=== PATIENT | male | born 1965 | race Caucasian/White ===

== ENCOUNTER 2023-10-25 07:09 | Day surgery (SDC) | payer OTHER ==
[~2023-10-25] VITALS: Ht 172.7 cm; Wt 94.1 kg
[~2023-10-25 07:09] MED LIST: IBLOOD GLUCOSE TEST STRIP 1 EA TEST VI PRN; LACTATED RINGER'S 1,000 ML IV SCH; LIDOCAINE HCL 1% 5 ML SDV INJ ONE; MIDAZOLAM HCL 5 MG/5 ML VIAL IV PRN; fentaNYL citrate 100 MCG/2 ML VIAL IV PRN
[2023-10-25 07:28] VITALS: BP 122/67
--- NOTE | 2023-10-25 07:38 | NUR ---
VISITED DURING SPIRITUAL CARE ROUNDS. PT RECEIVING NURSING CARE. DID NOT INTERRUPT. PROVIDED PRAYER.
[2023-10-25] MEDS ORDERED: fentaNYL citrate 100 MCG/2 ML VIAL ONE (08:44)
[2023-10-25] MEDS ORDERED: MIDAZOLAM HCL 5 MG/5 ML VIAL ONE (08:44)
--- NOTE | 2023-10-25 09:40 | NUR ---
10/25/23 0940 Ken Carmona 0929: PT ARRIVED TO PACU VIA STRECTER. PT DROWSY. PT ON 1L NC. PT ANSWERING QUESTIONS WITHOPUT DIFFICULTY. PT DENIES PAIN OR NAUSEA.
[2023-10-25 09:59] VITALS: BP 118/71
--- NOTE | 2023-10-26 09:31 | OR ---
[facility] [address] [place] [address], [place] [address] Signed DATE OF OPERATION: 10/25/2023 SURGEON: Sushma Houston MD PREOPERATIVE DIAGNOSIS: Cologuard positive stool. POSTOPERATIVE DIAGNOSES: 1. Minimal sigmoid diverticulosis. 2. 4 mm polyp at 10 cm in rectum. 3. 12 mm pedunculated polyp at 25 cm in sigmoid colon (snare, clip). 4. 5 mm polyp at mid transverse colon. 5. 5 mm polyp at ileocecal valve. 6. 7 mm polyp at hepatic flexure (snare, clip). PROCEDURE: Colonoscopy with hot biopsy, snare polypectomy and clip x2. ESTIMATED BLOOD LOSS: Minimal. INDICATIONS: Edmund is a 58-year-old gentleman, asked to see me for his initial colonoscopy. He had a positive Cologuard test through his primary care provider. He has no lower GI complaints. There is no family history of colon cancer or polyps. He does not have any lower GI complaints. In the office, I gave Teodoro pamphlet on colonoscopy. We had reviewed the nature of the test. There is risk including, but not limited to gas bloating, crampy abdominal pain, bleeding, perforation requiring surgery, and missed diagnosis. We also reviewed the written instructions for the bowel prep line by line. We also reviewed the need for IV conscious sedation. He is aware an adult person has to take him home afterwards. He had expressed understanding and wished to proceed. PROCEDURE IN DETAIL: Edmund was taken into our endoscopy suite and placed in the left lateral decubitus position. He was given a total of 8 mg of Versed and 200 mcg of fentanyl. Even then he was frequently clenching his jaw, often awake and pressing with his abdomen. His heart rate dropped into the 80s. In the end, we did get the camera around and all the polyps removed. Nevertheless, he might consider propofol infusion in the future. A digital rectal exam was performed and he does have good sphincter tone. No external hemorrhoids. No masses. His prostate is indurated and enlarged, more prominent on the Electronically Signed By: SUSHMA HOUSTON MD 10/26/23 0931 PATIENT NAME: EDMUND HAYES OPERATIVE REPORT DATE OF : 67 REPORT #: [id number] PHYSICIAN: SUSHMA HOUSTON MD PCP: BALJINDER ROEM REPORT IS CONFIDENTIAL AND NOT TO BE RELEASED WITHOUT AUTHORIZATION [facility] [address] [place] [address], [place] [address] Signed left than on the right. The adult colonoscope had been introduced and advanced around under direct visualization. His prep was good. We could easily see the appendiceal orifice and the ileocecal valve. The scope was then slowly withdrawn. We used hot biopsy forceps on most of the polyps. We did need our snare at 25 cm and at the hepatic flexure. Both of those polypectomy sites received a clip. This patient does use meloxicam for his chronic back pain. We saw just a few tiny diverticula in the sigmoid colon. They were quite clinically insignificant. Once down in the rectum, the scope was retroflexed and we saw no additional pathology above the anal canal. After this, the gas was suctioned out and the colonoscope removed. Edmund tolerated the procedure quite well. RECOMMENDATIONS: I will see Edmund back in my office in 7 to 14 days to review his results. He might consider propofol infusion in the future if he has recall of the procedure. He could always consider colonoscopy based on the number and size of polyps that he has had removed. Sushma Houston MD [facility]/MODL /[id number] cc: ANSON Barillas MD Copies: BALJINDER ROME ANDREW L MD ~ Electronically Signed By: SUSHMA HOUSTON MD 10/26/23 0931 PATIENT NAME: EDMUND HAYES OPERATIVE REPORT DATE OF : 67 REPORT #: [id number] PHYSICIAN: SUSHMA HOUSTON MD PCP: BALJINDER ROME REPORT IS CONFIDENTIAL AND NOT TO BE RELEASED WITHOUT AUTHORIZATION
--- NOTE | 2023-10-27 22:46 | PATH ---
[facility] [address] [facility] [place], [place] [address] Signed SPECIMEN(S): A RECTAL POLYP, 10 CM SPECIMEN(S): B SIGMOID POLYP, 25 CM SPECIMEN(S): C MID TRANSVERSE POLYP SPECIMEN(S): D ILEOCECAL VALVE POLYP SPECIMEN SOURCE: A. RECTAL POLYP, 10 CM B. SIGMOID POLYP, 25 CM C. MID TRANSVERSE POLYP D. ILEOCECAL VALVE POLYP CLINICAL HISTORY: History of positive Cologuard. Post-op: Polyp x5, minimal sigmoid diverticulosis. FINAL PATHOLOGIC DIAGNOSIS: A. Rectum, 10 cm, polyp, biopsy: - Hyperplastic polyp. B. Colon, sigmoid, 25 cm, polyp, biopsy: - Multiple fragments of tubulovillous adenoma. C. Colon, mid transverse, polyp, biopsy: - Tubular adenoma. D. Ileocecal valve, polyp, biopsy: - Multiple fragments of tubular adenoma. COMMENT: There is no evidence of dysplasia or malignancy. [facility] MICROSCOPIC EXAMINATION: Histologic sections of all submitted blocks are examined by light microscopy. These findings, together with the gross examination, support the pathologic diagnosis. GROSS DESCRIPTION: A. The specimen, labeled and designated "Miller, rectal polyp, 10 cm," is received in formalin and consists of one navas soft tissue fragment, 0.2 cm. Entirely submitted in (A1). B. The specimen, labeled and designated "Miller, sigmoid polyp, 25 cm," is received in formalin and consists of five fragments of navas soft tissue (0.4 to 0.6 cm in greatest dimension), and a PATIENT NAME: EDMUND HAYES PATHOLOGY DATE OF : 67 REPORT #: [id number] PHYSICIAN: PATRICIA WILDER PCP: BALJINDER ROME REPORT IS CONFIDENTIAL AND NOT TO BE RELEASED WITHOUT AUTHORIZATION [facility] [address] [place], [place] [address] Signed red-brown to navas pedunculated polypoid piece of tissue (head: 1.3 x 1.3 x 1.0 cm, stalk: 0.5 x 0.4 cm). The resection margin of the polypoid piece of tissue is inked blue, and the tissue is trisected to reveal red-brown to pink-navas soft cut surfaces. The specimen is submitted entirely in cassette (B1). C. The specimen, labeled and designated "Miller, mid transverse polyp," is received in formalin and consists of one navas soft tissue fragment, 0.2 cm. Entirely submitted in (C1). D. The specimen, labeled and designated "Miller, ileocecal valve polyp," is received in formalin and consists of two navas soft tissue fragments, ranging from 0.2 to 0.3 cm. Entirely submitted in (D1). VB (under the direct supervision of a pathologist) The Gross Description was prepared using a voice recognition system. The report was reviewed for accuracy; however, sound-alike word errors, addition and/or deletions may occur. If there is any question about this report, please contact Client Services. ADDITIONAL NOTES: Immunohistochemical and/or in situ hybridization studies if performed in this case included appropriate positive controls that reacted as expected. This test was developed and its performance characteristics determined by [facility]. It has not been cleared or approved by the U.S. Food and Drug Administration. The FDA has determined that such clearance or approval is not necessary. This test is used for clinical purposes. It should not be regarded as investigational or for research. [facility] is certified under the Clinical Laboratory Improvement Amendments of 1988 (CLIA) as qualified to perform high complexity clinical laboratory testing. PERFORMING LABORATORY: Technical component was performed by [facility], [address] [place], [place] [address]vijay [facility] [place] [address] (CLIA# [id number]). Professional interpretation [email or web address], [address] [place] [address] (CLIA#:[id number]). Diagnostician: Jefferson Ybarra MD Pathologist Electronically Signed 10/27/2023 PATIENT NAME: EDMUND HAYES PATHOLOGY DATE OF : 67 REPORT #: [id number] PHYSICIAN: PATRICIA PATHOLOGY PCP: BALJINDER ROME REPORT IS CONFIDENTIAL AND NOT TO BE RELEASED WITHOUT AUTHORIZATION [facility] [address] [place], [place] [address] Signed Copies: ~ PATIENT NAME: EDMUND HAYES PATHOLOGY DATE OF : 67 REPORT #: [id number] PHYSICIAN: PATRICIA WILDER PCP: BALJINDER ROME REPORT IS CONFIDENTIAL AND NOT TO BE RELEASED WITHOUT AUTHORIZATION
== END 2023-10-25 10:13 | disposition home or self-care (01) ==
LOC: DS 07:09
PROVIDERS: ATTEND Colon & Rectal Surgery
PROC: 0DBL8ZZ Excision of Transverse Colon, Via Natural or Artificial Opening Endoscopic (ICD-10-PCS; 2023-10-25)
PROC: 0DBN8ZZ Excision of Sigmoid Colon, Via Natural or Artificial Opening Endoscopic (ICD-10-PCS; 2023-10-25)
PROC: 0DBP8ZZ Excision of Rectum, Via Natural or Artificial Opening Endoscopic (ICD-10-PCS; 2023-10-25)
PROC: 0DBC8ZZ Excision of Ileocecal Valve, Via Natural or Artificial Opening Endoscopic (ICD-10-PCS; principal; 2023-10-25 08:15)
DX: Z12.11 Encounter for screening for malignant neoplasm of colon (principal); D12.3 Benign neoplasm of transverse colon; D12.6 Benign neoplasm of colon, unspecified; K62.1 Rectal polyp; K57.30 Diverticulosis of large intestine without perforation or abscess without bleeding
CPT/HCPCS: 99153; G0500; J2250; J3010; J7121

== ENCOUNTER 2024-04-04 05:55 | Day surgery (SDC) | payer OTHER ==
[2024-03-29 16:22] VITALS: BP 128/76
[~2024-04-04] VITALS: Ht 172.7 cm; Wt 95.0 kg
[~2024-04-04 05:55] MED LIST changes: -IBLOOD GLUCOSE TEST STRIP 1 EA TEST VI PRN; -LIDOCAINE HCL 1% 5 ML SDV INJ ONE; -MIDAZOLAM HCL 5 MG/5 ML VIAL IV PRN; +PHENTERMINE H37.5 M1 PO; +PHENTERMINE HCL15 MG PO; -fentaNYL citrate 100 MCG/2 ML VIAL IV PRN
[2024-04-04 06:12] VITALS: BP 135/74
[2024-04-04 06:44] LABS: BASOPHILS 0.4 % (0-2); BASOPHILS, ABSOLUTE 0 %; EOSINOPHILS 1.8 % (0-6); EOSINOPHILS, ABSOLUTE 0.1; HEMATOCRIT 38.4 % (35.0-50.0); HEMOGLOBIN 13.2 g/dL (12.0-18.0); LYMPHOCYTES 25.2 % (24-44); MCH 31.7 (27-36); MCHC 34.3 g/dl (30-36); MCV 92.5 fl (81-99); MONOCYTES 9.3 % (0-12); MONOCYTES, ABSOLUTE 0.4; NEUTROPHILS 63.3 % (39-80); NEUTROPHILS, ABSOLUTE 2.5; PLATELET COUNT 254 K/uL (140-440); RBC 4.15 M/ul (4.3-5.7); RDW 12.7 (10.5-15.0)
[2024-04-04 07:00] LABS: ALBUMIN 3.5 g/dL (3.4-5.0); ALBUMIN/GLOBULIN RATIO 1.25 (1.1-2.4); ANION GAP 10.3 (7-21); BILIRUBIN, TOTAL 0.6 ng/dL (0.2-1.0); BUN/CREATININE RATIO 20.43 (6.0-28.6); CREATININE, SERUM 0.93 mg/dL (0.70-1.30); POTASSIUM 4.3 mmol/L (3.5-5.1); PROTEIN, TOTAL 6.3 g/dL (6.4-8.2)
[2024-04-04] MEDS ORDERED: HEParin SOD (PORCINE) 5,000 UNIT/ML SDV SUB-Q SCH (07:00)
[2024-04-04] MEDS ORDERED: CEFAZOLIN SODIUM 2 GM/20 ML SYR IV SCH (07:00)
[2024-04-04] MEDS ORDERED: IBLOOD GLUCOSE TEST STRIP 1 EA TEST VI PRN ×2 (07:00→08:45)
[2024-04-04] MEDS ORDERED: LIDOCAINE HCL 1% 5 ML SDV INJ ONE (07:00)
[2024-04-04] MEDS ORDERED: KETOROLAC TROMETHAMINE 30 MG/ML VIAL ONE (07:05)
[2024-04-04] MEDS ORDERED: ROCURONIUM BROMIDE 50 MG/5 ML SYR ONE (07:05)
[2024-04-04] MEDS ORDERED: ondansetron HCL 4 MG/2 ML VIAL ONE (07:05)
[2024-04-04] MEDS ORDERED: propofoL 200 MG/20 ML VIAL ONE (07:05)
[2024-04-04] MEDS ORDERED: DEXAMETHASONE SOD PHOS 4 MG/ML VIAL ONE (07:05)
[2024-04-04] MEDS ORDERED: SUGAMMADEX SODIUM 200 MG/2 ML ML ONE (07:05)
[2024-04-04] MEDS ORDERED: LIDOCAINE HCL 2% 5 ML SDV ONE (07:06)
[2024-04-04] MEDS ORDERED: MIDAZOLAM HCL 2 MG/2 ML VIAL ONE (07:07)
[2024-04-04] MEDS ORDERED: fentaNYL citrate 100 MCG/2 ML VIAL ONE (07:07)
--- NOTE | 2024-04-04 07:16 | NUR ---
VISITED DURING SPIRITUAL CARE ROUNDS. PT SUPPORTED BY SPOUSE IN ROOM, BOTH IN OVERALL GOOD SPIRITS, NO IMMEDIATE NEEDS. AUTOMOBILE MECHANIC ASSISTANT PROVIDED SUPPORTIVE PRESENCE, HOSPITALITY, PRAYER. PT AND SPOUSE EXPRESSED GRATITUDE.
[2024-04-04] MEDS ORDERED: ePHEDrine sulfate 50 MG/ML AMP ONE (08:10)
[2024-04-04] MEDS ORDERED: ACETAMINOPHEN 1,000 MG/100 ML VIAL ONE (08:12)
[2024-04-04] MEDS ORDERED: LACTATED RINGER'S 1,000 ML IV ONE (08:16)
[2024-04-04] MEDS ORDERED: PROCHLORPERAZINE EDISYLATE 10 MG/2 ML VIAL IV PRN (08:45)
[2024-04-04] MEDS ORDERED: fentaNYL citrate 50 MCG/ML SDV IV PRN (08:45)
[2024-04-04] MEDS ORDERED: NALOXONE HCL 0.4 MG SYR IV PRN ×2 (08:45)
[2024-04-04] MEDS ORDERED: ondansetron HCL 4 MG/2 ML VIAL IV PRN ×2 (08:45)
[2024-04-04] MEDS ORDERED: HYDROmorphone HCL 1 MG/ML SYR IV PRN (08:45)
--- NOTE | 2024-04-04 09:03 | NUR ---
04/04/24 0903 Sade Gutierrez 0835- PT ARRIVES TO THE PACU WITH A NATURAL AIRWAY AND REACHING TOWARD HIS FACE. BREATHING IS EVEN AND UNLABORED. PT IS ON RA. PT DENIES PAIN AND NAUSEA. VS WNL. PT IS ABLE TO FOLLOW DIRECTIONS WHEN ASKED TO LOWER HIS ARMS. LR INFUSING IN HIS R HAND. ABDOMEN IS SOFT AND NON DISTENDED. PT HOB INCREASED. ICE PACK PUT IN PLACE AND PILLOW PROVIDED FOR SPLINTING. 0845- PT TALKING WITH RN. PT REPORTS 3/10 PAIN THAT IS IN HIS LOWER ABDOMEN, AND DESCRIBED "DEEP" BUT IS TOLERABLE. PT SHOWS NO SIGNS OF APPARENT DISTRESS. WILL CONTINUE TO MONITOR. 0900- PT REPORTS 4/10 PAIN THAT IS TOLERABLE. PLAN OF CARE DISCUSSED AND PT IS AGREEABLE. NO QUESTIONS OR CONCERNS AT THIS TIME. VS WNL. PT REPORTS HIS NECK IS SORE, EDUCATION PROVIDED ABOUT THE PROCEDURE.
[2024-04-04 09:09] VITALS: BP 117/67
--- NOTE | 2024-04-04 09:12 | NUR ---
LE 0910: PT IS BACK TO DS FROM PACU. IS AT THE BEDSIDE. CALL LIGHT WITHIN REACH. WATER ON BEDSIDE TABLE. NO ADDITIONAL NEEDS AT THIS TIME. DC CRITERIA REVIEWED WITH PT AND .
--- NOTE | 2024-04-04 09:36 | OR ---
[facility] [address] [place], [place] [address] Signed DATE OF OPERATION: 04/04/2024 SURGEON: Sushma Houston MD PREOPERATIVE DIAGNOSIS: Incarcerated umbilical hernia (15 mm). POSTOPERATIVE DIAGNOSIS: Incarcerated umbilical hernia (15 mm). PROCEDURE: Primary umbilical hernia repair with 4.3 cm round Ventralex mesh. ESTIMATED BLOOD LOSS: None. INDICATIONS: Edmund is a 58-year-old gentleman, asked to see me for his incarcerated and symptomatic umbilical hernia. He told me he has had the umbilical hernia for several years. He was moving gravel around his house. He said it was really bothering him. At least five times it really got his attention over the last couple of months. He said it is to the point he knew he had to do something to have it repaired. He had gone to his primary care provider. He was then asked to see me as a local general surgeon. I met with Edmund in the office. I gave him our brochure on hernias. We went through it page by page. He understands the nature of an umbilical hernia. We reviewed the difference between a primary suture repair and a mesh repair. He understands the expected intraop and postop course. There is risk including, but not limited to bleeding, infection, scarring, change in contour of the skin, damage to bowel, infection of mesh requiring removal, recurrent hernias and chronic pain. He had expressed understanding and wished to proceed. PROCEDURE IN DETAIL: I met with Edmund and his in our preop area. We marked the umbilicus appropriately. After this, Edmund was taken in the operating room and placed in the supine position under general endotracheal tube anesthesia. He was given preoperative antibiotics along with subcutaneous heparin. SCDs were utilized. He was then prepped and draped in the usual sterile fashion. A standard infraumbilical transverse incision was made and carried down around the umbilicus bluntly and with the cautery. The umbilicus and the hernia sac was from the fascial defect. The hernia sac was passed off the field. It was actually a moderately large hernia sac. Thankfully, the overlying skin Electronically Signed By: SUSHMA HOUSTON MD 04/04/24 0936 PATIENT NAME: EDMUND HAYES OPERATIVE REPORT DATE OF : 67 REPORT #: [id number] PHYSICIAN: SUSHMA HOUSTON MD PCP: BALJINDER ROME REPORT IS CONFIDENTIAL AND NOT TO BE RELEASED WITHOUT AUTHORIZATION [facility] [address] [place], [place] [address] Signed still had some thickness. The fascial defect itself was about 15 mm. We therefore chose our 4.3 cm round Ventralex mesh. We placed that in the abdomen, brought up, flushed against the posterior abdominal wall. We used interrupted [id number] #1 Prolene suture to close the fascial defect. Several passes of the suture went through the tab on the mesh to help hold it in place. The mesh was then cut flushed with the abdominal wall and discarded. We injected local anesthetic into the abdominal wall. The wound was irrigated and suctioned out until clear. We brought the umbilical skin back down the midline fascia with interrupted 2-0 PDS suture. The dermis was reapproximated with interrupted 3-0 subcuticular Monocryl sutures. The skin edges were reapproximated with a running 5-0 fast absorbing plain gut suture. Dry gauze and tape was then applied. Edmund was then awakened from his anesthesia, extubated in the OR and taken to recovery room in stable condition. Sushma Houston MD [facility] /[id number] cc: ANSON Barillas MD Copies: BALJINDER ROME ANDREW L MD ~ Electronically Signed By: SUSHMA HOUSTON MD 04/04/24 0936 PATIENT NAME: EDMUND HAYES OPERATIVE REPORT DATE OF : 67 REPORT #: [id number] PHYSICIAN: SUSHMA HOUSTON MD PCP: BALJINDER ROME REPORT IS CONFIDENTIAL AND NOT TO BE RELEASED WITHOUT AUTHORIZATION
[2024-04-04] MEDS ORDERED: OXYCODONE HCL 5 MG TAB PO PRN (09:45)
--- NOTE | 2024-04-04 10:10 | NUR ---
LE 1005: PT IS ASSISTED UP OOB WITH STAND BY ASSIST. HE AMBULATES INDEPENDENTLY TO THE BATHROOM. LE 1007: PT IS ABLE TO VOID 450MLS OF DARK URINE. HE IS INDICATES THAT HE WOULD LIKE TO GO HOME. HE IS EDUCATED ON HOW TO BEST DRESS HIMSELF AND TO OPEN HIS CURATIN WHEN HE IS READY.
[2024-04-04 10:14] VITALS: BP 141/75
--- NOTE | 2024-04-04 10:33 | NUR ---
LE 1021: PT AND GIVEN VERBAL AND WRITTEN DC INSTRUCTIONS. THEY BOTH VERBALIZE UNDERSTANDING. QUESTIONS ARE ASKED AND ANSWERED. LE 1025: PT IS TAKEN TO PERSONAL VEHICLE VIA WC AND ABLE TO TRANSFER HIMSELF WITHOUT ISSUES.
[2024-04-04] MEDS ORDERED: SEVOFLURANE 250 ML BTL INH ONE (16:13)
== END 2024-04-04 10:25 | disposition home or self-care (01) ==
LOC: DS 05:55
PROVIDERS: Nurse Anesthetist, Certified Registered; ATTEND Colon & Rectal Surgery
PROC: 0WUF0JZ Supplement Abdominal Wall with Synthetic Substitute, Open Approach (ICD-10-PCS; principal; 2024-04-04 07:30)
DX: K42.0 Umbilical hernia with obstruction, without gangrene (principal); K63.5 Polyp of colon; Z79.899 Other long term (current) drug therapy; Z88.8 Allergy status to other drugs, medicaments and biological substances
CPT/HCPCS: 00750; 36415; 80053; 85025; A9270; C1781; J0131; J0690; J1100; J1644; J1885; J2003; J2250; J2405; J2704; J3010; J3490; J7121